=== PATIENT | male | born 1955 | race Caucasian/White ===

== ENCOUNTER → 2025-06-22 10:52 | Outpatient (REF) | payer MEDICARE, SELFPAY | LOC: HWRAD 10:52 | PROVIDERS: ATTENDING PHYSICIAN Internal Medicine | DX: R60.0 Localized edema (principal); R35.1 Nocturia | CPT/HCPCS: 76857; 93970 ==

== ENCOUNTER → 2025-06-29 14:48 | Outpatient (REF) | payer MEDICARE, SELFPAY | LOC: HWRCS 14:48 | PROVIDERS: ATTENDING PHYSICIAN Internal Medicine | DX: R60.0 Localized edema (principal) | CPT/HCPCS: 93306 ==

== ENCOUNTER → 2025-07-21 13:15 | Outpatient (REF) | payer MEDICARE, SELFPAY | LOC: HWRAD 13:15 | PROVIDERS: ATTENDING PHYSICIAN Internal Medicine | DX: G60.9 Hereditary and idiopathic neuropathy, unspecified (principal); G62.1 Alcoholic polyneuropathy; F10.10 Alcohol abuse, uncomplicated | CPT/HCPCS: 73110 ==

== ENCOUNTER → 2025-08-03 13:12 | Outpatient (REF) | payer MEDICARE, SELFPAY | LOC: EMG 13:12 | PROVIDERS: ATTENDING PHYSICIAN Internal Medicine | DX: R06.09 Other forms of dyspnea (principal); R20.0 Anesthesia of skin | CPT/HCPCS: 95886; 95911 ==